=== PATIENT | female | born 1985 | race African-American/Black ===

== ENCOUNTER 2017-04-13 01:44 | Emergency (ER) | payer OTHER ==
[~2017-04-13] VITALS: Ht 170.2 cm; Wt 81.6 kg
[~2017-04-13 01:44] MED LIST: FAMO-63 PO; HYDR-2678 PO; Ibuprofen PO; LISI1TAB3 PO; OXYC-314 PO; PNV1TABL25 PO
[2017-04-13 01:49] VITALS: BP 175/112
[2017-04-13] MEDS ORDERED: ACETAMINOPHEN 325 MG TABLET. PO ONE (03:00)
--- NOTE | 2017-04-13 03:16 | RAD ---
EXAM: CT head without contrast HISTORY: FALL,HEAD INJURY WITH LOSS OF CONSCIOUSNESS COMPARISON: None. TECHNIQUE: Computed tomographic images of the head were obtained without contrast. PQRS compliance statement: One or more of the following individualized dose reduction techniques were utilized for this examination: 1. Automated exposure control 2. Adjustment of the mA and/or kV according to patient size 3. Use of iterative reconstruction technique FINDINGS: There is no acute intracranial process identified. Specifically, there are no intracranial blood products, extra-axial fluid collections, mass effect or midline shift. Ventricles and basilar cisterns are maintained. The visualized portions of the orbits, paranasal sinuses and mastoid air cells are unremarkable. No suspicious calvarial lesion is seen. IMPRESSION: No acute intracranial findings. Electronically signed by: Karol Latham MD (04/13/2017 3:14 AM)
--- NOTE | 2017-04-13 03:26 | PHYS DOC ---
Past Medical History Past Medical History: Asthma, Constipation, Other Additional Past Medical Histor: OVARIAN CYST,IV DRUG USE Past Surgical History: Other Additional Past Surgical Histo: NAVEL/ ABDOMINAL SURG Alcohol Use: None Drug Use: None Adult General Chief Complaint Chief Complaint: HEADACHE HPI HPI 32-year-old female presenting to the emergency department today after sustaining head injury. She reports sustaining a mechanical fall in a public bathroom when she had her the back of her head and lost consciousness. She has a headache that is mild to moderate intermittent and without alleviating factors. She comes by EMS today. She denies neck pain chest pain or shortness of breath. Review of systems is negative for abdominal pain or extremity pain. She denies nausea vomiting. All other review of systems is negative unless otherwise noted in history of present illness. ED course: 32-year-old female presenting to the emergency department with head injury and loss of consciousness. Head CT obtained which was negative. Otherwise secondary survey was unremarkable. The patient was then discharged home in stable condition. Review of Systems Review of Systems SEE ABOVE. Current Medications Current Medications Current Medications Medications (Trade) Dose Ordered Sig/Nivia Start Time Stop Time Status Last Admin Dose Admin Acetaminophen (Tylenol) 650 mg 1X ONCE 04/13/17 03:00 04/13/17 03:01 DC 04/13/17 03:10 650 MG Allergies Allergies Allergies Coded Allergies Type Severity Reaction Last Updated Verified amoxicillin Allergy Intermediate Pt states mother told her she was allergic 03/20/14 Yes Physical Exam Physical Exam Constitutional: Well developed, well nourished, no acute distress, non-toxic appearance. [] HENT: Normocephalic, unable to appreciate lacerations abrasions or ecchymosis of the head. No depressed skull fractures., bilateral external ears normal, oropharynx moist, no oral exudates, nose normal. [] Eyes: PERRLA, EOMI, conjunctiva normal, no discharge. [] Neck: Normal range of motion, no tenderness, supple, no stridor. [] Cardiovascular:Heart rate regular rhythm, no murmur [] Lungs & Thorax: Bilateral breath sounds clear to auscultation [] Abdomen: Bowel sounds normal, soft, no tenderness, no masses, no pulsatile masses. [] Skin: Warm, dry, no erythema, no rash. [] Back: No tenderness, no CVA tenderness. [] Extremities: No tenderness, no cyanosis, no clubbing, ROM intact, no edema. [] Neurologic: Mental status: Awake oriented and alert x3 Cranial nerves: Extraocular movements intact, eyebrows ricci bilaterally smile symmetric, uvula elevation, shoulder shrug intact, tongue protrusion normal DTRs: 2+ Sensation: equal and normal in all extremities Strength: 5/5 in upper and lower extremities bilaterally Psychologic: Affect normal, judgement normal, mood normal. [] Current Patient Data Vital Signs Vital Signs Date Time Temp Pulse Resp B/P (MAP) Pulse Ox O2 Delivery O2 Flow Rate FiO2 04/13/17 01:49 98.5 117 20 96 Room Air 98.5 EKG EKG [] Radiology/Procedures Radiology/Procedures [] Course & Med Decision Making Course & Med Decision Making Pertinent Labs and Imaging studies reviewed. (See chart for details) [] Dragon Disclaimer Dragon Disclaimer This electronic medical record was generated, in whole or in part, using a voice recognition dictation system. Departure Departure Impression: Primary Impression: Head injury Additional Impression: Loss of consciousness Disposition: HOME, SELF-CARE Condition: STABLE Referrals: ALISHA STAPLETON MD (PCP) Patient Instructions: Head Injury, Adult Additional Instructions: Thank you for allowing us to participate in your care today. Followup with your primary care physician in 3 days if your symptoms do not improve. Call your Primary Doctor tomorrow and inform them of your visit today. If you do not have a primary care provider you can ask for a list of our primary care providers. Return to the emergency department you have any new or concerning findings. This should be evaluated by the primary care physician and any necessary consulting services for continued management within a few days after discharge. Return to emergency room if you have any new or concerning symptoms including but not limited to fever, chills, nausea, vomiting, intractable pain, any new rashes, chest pain, shortness of air, uncontrolled bleeding, difficulty breathing, and/or vision loss. Problem Qualifiers VALARIE PEREZ MD Apr 13, 2017 03:26
[2017-04-13] MEDS: IBUPROFEN 400 MG TABLET. PO ONE (03:35)
== END 2017-04-13 04:35 | disposition home or self-care (01) ==
LOC: ER 01:44
DX: S06.9X9A Unspecified intracranial injury with loss of consciousness of unspecified duration, initial encounter (principal); J45.909 Unspecified asthma, uncomplicated; Z88.1 Allergy status to other antibiotic agents; W19.XXXA Unspecified fall, initial encounter; Y93.89 Activity, other specified; Y92.89 Other specified places as the place of occurrence of the external cause; Y99.8 Other external cause status
CPT/HCPCS: 70450; 81025; 99284-25

== ENCOUNTER 2017-11-17 05:11 | Inpatient (IN) | payer SELFPAY ==
[2017-11-17] MEDS ORDERED: ONDANSETRON PF 4 MG/2 ML VIAL. IV ×3 (05:45→12:00)
[2017-11-17] MEDS ORDERED: VANCOMYCIN PER PHARMACY MC (05:45)
[2017-11-17] MEDS: fentaNYL PF VIAL 100 MCG/2 ML VIAL IV ×4 (05:55→12:11)
[2017-11-17] MEDS: VANCOMYCIN 2 GM in IV DEXTROSE 5 %-0.2 % NACL 500 ML IV (06:19)
[2017-11-17] MEDS: ONDANSETRON PF 4 MG/2 ML VIAL. IV (06:21)
[2017-11-17] MEDS: IV NORMAL SALINE 1000ML BAG 1,000 ML IV (06:22)
[2017-11-17 06:23] LABS: ADD MAN DIFF? NO
[2017-11-17 06:40] LABS: ANION GAP 12 (6-14); BLOOD UREA NITROGEN 12 mg/dL (7-20); CALCIUM 9.2 mg/dL (8.5-10.1); CARBON DIOXIDE 24 mmol/L (21-32); CHLORIDE 102 mmol/L (98-107); CREATININE 0.8 mg/dL (0.6-1.0); GFR 101.2; GLUCOSE 116 mg/dL (70-99); POTASSIUM 3.7 mmol/L (3.5-5.1); SODIUM 138 mmol/L (136-145)
[2017-11-17 06:42] LABS: BASO # 0.1 x10^3/uL (0.0-0.2); BASO % 1 % (0-3); C-REACTIVE PROTEIN 165.6 mg/L (0-3.3); EOS # 0.2 x10^3/uL (0.0-0.7); EOS % 2 % (0-3); HEMATOCRIT 37.2 % (36.0-47.0); LYMPH # 1.4 x10^3/uL (1.0-4.8); LYMPH % 13 % (24-48); MEAN CORPUSCULAR HEMOGLOBIN 25 pg (25-35); MEAN CORPUSCULAR HGB CONC 32 g/dL (31-37); MEAN CORPUSCULAR VOLUME 78 fL (79-100); MONO # 1.1 x10^3/uL (0.0-1.1); MONO % 11 % (0-9); NEUT % 74 % (31-73); PLATELET COUNT 352 x10^3/uL (140-400); RED BLOOD COUNT 4.76 x10^6/uL (3.50-5.40); RED CELL DISTRIBUTION WIDTH 14.9 % (11.5-14.5); WHITE BLOOD COUNT 10.8 x10^3/uL (4.0-11.0)
[2017-11-17 06:50] LABS: LACTIC ACID 0.8 mmol/L (0.4-2.0)
[2017-11-17] MEDS: VANCOMYCIN PER PHARMACY MC ×2 (06:52→06:56)
[2017-11-17] MEDS ORDERED: ACETAMINOPHEN 325 MG TABLET. PO (08:00)
[2017-11-17] MEDS: IV RINGERS,LACTATED 1000ML 1,000 ML IV ×3 (08:15→17:11)
[2017-11-17] MEDS: HYDROmorphone 2 MG/ML VIAL IV ×4 (08:16→23:14)
[2017-11-17 08:50] LABS: SEDIMENTATION RATE 15 (0-25)
[2017-11-17 09:00] LABS: BILIRUBIN,URINE NEGATIVE (NEG); CLARITY,URINE CLEAR; COLOR,URINE YELLOW; GLUCOSE,URINE NEGATIVE (NEG); NITRITE,URINE NEGATIVE (NEG); PROTEIN,URINE NEGATIVE (NEG-TRACE)
[2017-11-17 09:20] LABS: BACTERIA,URINE 0 /HPF (0-FEW); RBC,URINE 0 /HPF (0-2); SQUAMOUS EPITHELIAL CELL,UR FEW /LPF; WBC,URINE 0 /HPF (0-4)
[2017-11-17] MEDS ORDERED: diphenhydrAMINE 50 MG/ML VIAL IVP (09:30)
[2017-11-17] MEDS: CEFEPIME HCL IV Push 1 GM VIAL. IVP ×2 (09:40→17:10)
[2017-11-17] MEDS ORDERED: PROPOFOL 20 ML IV (10:28)
[2017-11-17] MEDS ORDERED: LIDOCAINE 2% PF Vial for OR 5 ML VIAL. (10:28)
[2017-11-17] MEDS ORDERED: fentaNYL PF VIAL 100 MCG/2 ML VIAL ×2 (10:29→11:46)
[2017-11-17] MEDS ORDERED: DEXAMETHASONE SOD PHOS 20 MG/5 ML VIAL. (10:29)
[2017-11-17] MEDS ORDERED: ONDANSETRON PF 4 MG/2 ML VIAL. (10:29)
[2017-11-17] MEDS ORDERED: MIDAZOLAM HCL/PF 2 MG/2 ML VIAL. (10:29)
[2017-11-17] MEDS ORDERED: ESMOLOL 100 MG/10 ML VIAL. IV (11:25)
[2017-11-17] MEDS ORDERED: PROCHLORPERAZINE 10 MG/2 ML VIAL. (11:46)
[2017-11-17] MEDS: PROCHLORPERAZINE 10 MG/2 ML VIAL. IV ×2 (11:57→12:08)
[2017-11-17] MEDS ORDERED: HYDROmorphone 2 MG/ML VIAL IV (12:00)
[2017-11-17] MEDS ORDERED: fentaNYL PF VIAL 100 MCG/2 ML VIAL IV (12:00)
[2017-11-17] MEDS ORDERED: MORPHINE SULFATE 2 MG/ML DISP.SYRIN. IV (12:00)
[2017-11-17] MEDS ORDERED: LIDOCAINE 1% PF 2 ML VIAL. ID (12:00)
[2017-11-17] MEDS ORDERED: CEFEPIME HCL 1 GM in IV DEXTROSE 5% 50 ML IV (14:00)
[2017-11-17] MEDS: VANCOMYCIN 1.5 GM in IV DEXTROSE 5 %-0.2 % NACL 500 ML IV ×2 (14:24→22:23)
[2017-11-17] MEDS: oxyCODONE/APAP 5/325 1 TAB TABLET PO (22:21)
[2017-11-18] MEDS: CEFEPIME HCL IV Push 1 GM VIAL. IVP ×2 (00:27→08:19)
[2017-11-18] MEDS: oxyCODONE/APAP 5/325 1 TAB TABLET PO (05:57)
[2017-11-18 06:05] LABS: ADD MAN DIFF? NO
[2017-11-18 06:33] LABS: BASO % 0 % (0-3); EOS % 0 % (0-3); HEMATOCRIT 35.1 % (36.0-47.0); HEMOGLOBIN 11.4 g/dL (12.0-15.5); LYMPH # 1.2 x10^3/uL (1.0-4.8); LYMPH % 10 % (24-48); MEAN CORPUSCULAR HEMOGLOBIN 26 pg (25-35); MEAN CORPUSCULAR HGB CONC 33 g/dL (31-37); MEAN CORPUSCULAR VOLUME 78 fL (79-100); MONO # 0.9 x10^3/uL (0.0-1.1); MONO % 7 % (0-9); NEUT # 10.3 x10^3uL (1.8-7.7); NEUT % 83 % (31-73); PLATELET COUNT 388 x10^3/uL (140-400); RED BLOOD COUNT 4.48 x10^6/uL (3.50-5.40); RED CELL DISTRIBUTION WIDTH 14.6 % (11.5-14.5); WHITE BLOOD COUNT 12.5 x10^3/uL (4.0-11.0)
[2017-11-18 06:37] LABS: ANION GAP 10 (6-14); BLOOD UREA NITROGEN 9 mg/dL (7-20); CARBON DIOXIDE 25 mmol/L (21-32); CHLORIDE 105 mmol/L (98-107); CREATININE 0.6 mg/dL (0.6-1.0); GFR 141.1; GLUCOSE 121 mg/dL (70-99); POTASSIUM 3.8 mmol/L (3.5-5.1); SODIUM 140 mmol/L (136-145)
[2017-11-18] MEDS: VANCOMYCIN 1.5 GM in IV DEXTROSE 5 %-0.2 % NACL 500 ML IV (07:32)
[2017-11-18] MEDS: HYDROmorphone 2 MG/ML VIAL IV (07:32)
[2017-11-18] MEDS: IV RINGERS,LACTATED 1000ML 1,000 ML IV (08:19)
[2017-11-18] MEDS: VANCOMYCIN PER PHARMACY MC (13:25)
== END 2017-11-18 09:15 | disposition left against medical advice (07) | DRG 854 ==
LOC: ER 05:11 → 4 NORTH 05:50
PROC: 0JBQ0ZZ Excision of Right Foot Subcutaneous Tissue and Fascia, Open Approach (ICD-10-PCS; principal; 2017-11-17 11:02)
DX: A41.9 Sepsis, unspecified organism (principal); L02.611 Cutaneous abscess of right foot; L03.115 Cellulitis of right lower limb; F17.210 Nicotine dependence, cigarettes, uncomplicated; J45.909 Unspecified asthma, uncomplicated; W57.XXXA Bitten or stung by nonvenomous insect and other nonvenomous arthropods, initial encounter; Z82.49 Family history of ischemic heart disease and other diseases of the circulatory system; K59.00 Constipation, unspecified; Z53.21 Procedure and treatment not carried out due to patient leaving prior to being seen by health care provider
CPT/HCPCS: 36415; 73630; 80048; 80202; 81001; 83605; 85025; 85651; 86140; 87040; 87071; 87075; 87086; 87205; 96361; 96365; 96375; 99285; 99285-25; J0692; J0780; J1100; J1170; J2250; J2405; J2704; J3010; J3370; J3490; J7030; J7120

== ENCOUNTER 2018-04-18 23:47 | Emergency (ER) | payer SELFPAY ==
[2018-04-19 00:33] LABS: BILIRUBIN,URINE NEGATIVE (NEG); CLARITY,URINE CLEAR; COLOR,URINE YELLOW; GLUCOSE,URINE NEGATIVE (NEG); NITRITE,URINE NEGATIVE (NEG); PH,URINE 5.5; PROTEIN,URINE NEGATIVE (NEG-TRACE); UROBILINOGEN,URINE 0.2 mg/dL (0.2 mg/dL)
[2018-04-19 00:46] LABS: AMPHETAMINE/METHAMPHETAMINE NEG (NEG); BARBITURATES NEG (NEG); BENZODIAZEPINES NEG (NEG); CANNABINOIDS NEG (NEG); COCAINE POS (NEG); METHADONE NEG (NEG); OPIATES POS (NEG); PHENCYCLIDINE NEG (NEG)
[2018-04-19 00:47] LABS: ETHANOL, URINE NEG (NEG)
[2018-04-19 00:48] LABS: BACTERIA,URINE FEW /HPF (0-FEW); SQUAMOUS EPITHELIAL CELL,UR MOD /LPF
[2018-04-19 01:10] LABS: NEG OBC UR NEG; POS OBC UR POS; U PREG PATIENT NEGATIVE (NEG)
[2018-04-19] MEDS: ONDANSETRON PF 4 MG/2 ML VIAL. IV (01:26)
[2018-04-19] MEDS: PANTOPRAZOLE IV PUSH 40 MG VIAL. IVP (01:26)
[2018-04-19] MEDS: IV NORMAL SALINE 1000ML BAG 1,000 ML IV (01:29)
[2018-04-19 01:37] LABS: ADD MAN DIFF? NO
[2018-04-19 01:48] LABS: BASO % 1 % (0-3); EOS # 0.2 x10^3/uL (0.0-0.7); EOS % 3 % (0-3); HEMATOCRIT 31.5 % (36.0-47.0); HEMOGLOBIN 10.5 g/dL (12.0-15.5); LYMPH # 1.6 x10^3/uL (1.0-4.8); LYMPH % 28 % (24-48); MEAN CORPUSCULAR HEMOGLOBIN 24 pg (25-35); MEAN CORPUSCULAR HGB CONC 33 g/dL (31-37); MEAN CORPUSCULAR VOLUME 72 fL (79-100); MONO # 0.5 x10^3/uL (0.0-1.1); MONO % 8 % (0-9); NEUT # 3.5 x10^3uL (1.8-7.7); NEUT % 61 % (31-73); PLATELET COUNT 322 x10^3/uL (140-400); RED BLOOD COUNT 4.36 x10^6/uL (3.50-5.40); RED CELL DISTRIBUTION WIDTH 16.1 % (11.5-14.5); WHITE BLOOD COUNT 5.8 x10^3/uL (4.0-11.0)
[2018-04-19 01:50] LABS: ANION GAP 9 (6-14); BLOOD UREA NITROGEN 15 mg/dL (7-20); BUN/CREATININE RATIO 19 (6-20); CALCIUM 8.8 mg/dL (8.5-10.1); CARBON DIOXIDE 25 mmol/L (21-32); CHLORIDE 107 mmol/L (98-107); CREATININE 0.8 mg/dL (0.6-1.0); GFR 100.6; GLUCOSE 105 mg/dL (70-99); POTASSIUM 3.8 mmol/L (3.5-5.1); SODIUM 141 mmol/L (136-145)
[2018-04-19 01:52] LABS: ETHANOL < 10 mg/dL (0-10)
[2018-04-19 01:56] LABS: ALBUMIN 3.4 g/dL (3.4-5.0); ALBUMIN/GLOBULIN RATIO 0.9 (1.0-1.7); ALK PHOS 114 U/L (46-116); ALT (SGPT) 14 U/L (14-59); AST (SGOT) 20 U/L (15-37); LIPASE 89 U/L (73-393); TOTAL BILIRUBIN 0.3 mg/dL (0.2-1.0); TOTAL PROTEIN 7.3 g/dL (6.4-8.2)
[2018-04-19] MEDS: ACETAMINOPHEN 500 MG TABLET PO (02:26)
== END 2018-04-19 02:30 | disposition home or self-care (01) ==
LOC: ER 23:47
DX: R11.2 Nausea with vomiting, unspecified (principal); R19.7 Diarrhea, unspecified; J45.909 Unspecified asthma, uncomplicated; Z79.899 Other long term (current) drug therapy; Z88.1 Allergy status to other antibiotic agents
CPT/HCPCS: 36415; 80053; 80307; 81001; 81025; 83690; 85025; 87086; 96361; 96374; 96375; 99284-25; C9113; G0480; J2405; J7030

== ENCOUNTER 2020-04-06 20:03 | Observation (INO) | payer MEDICAID ==
[2018-04-19 01:54] VITALS: BP 156/72
[~2020-04-06] VITALS: Ht 170.2 cm; Wt 98.7 kg
[~2020-04-06 20:03] MED LIST changes: +FOLI1TAB35 PO; +IV RINGERS,LACTATED 1000ML 1,000 ML IV SCH; +LISI1TAB23 PO; -LISI1TAB3 PO; +[UNRECOGNIZED DRUG - OTHER]
[2020-04-06] MEDS ORDERED: ACETAMINOPHEN 325 MG TABLET. PO PRN (20:15)
[2020-04-06 20:37] LABS: BILIRUBIN,URINE NEGATIVE (NEG); CLARITY,URINE CLEAR; COLOR,URINE YELLOW; NITRITE,URINE NEGATIVE (NEG); PH,URINE 6.5 (<5.0-8.0); PROTEIN,URINE NEGATIVE (NEG-TRACE)
[2020-04-06 20:41] LABS: SQUAMOUS EPITHELIAL CELL,UR MOD /LPF
[2020-04-06 20:43] LABS: BACTERIA,URINE FEW /HPF (0-FEW); RBC,URINE RARE /HPF (0-2)
[2020-04-06 20:44] LABS: AMPHETAMINE/METHAMPHETAMINE NEG (NEG); BARBITURATES NEG (NEG); BENZODIAZEPINES NEG (NEG); CANNABINOIDS NEG (NEG); COCAINE NEG (NEG); METHADONE NEG (NEG); OPIATES NEG (NEG); PHENCYCLIDINE NEG (NEG)
[2020-04-06] MEDS ORDERED: hydrOXYzine IM 50 MG/ML VIAL IM PRN (21:00)
[2020-04-06] MEDS ORDERED: ACETAMINOPHEN 500 MG TABLET PO ONE (21:30)
== END 2020-04-06 22:10 | disposition home or self-care (01) ==
LOC: 3 SO LND 20:03 → EEVIPCON 20:03
PROVIDERS: ADMIT Obstetrics & Gynecology; ATTEND Obstetrics & Gynecology
DX: O26.893 Other specified pregnancy related conditions, third trimester (principal); R12 Heartburn; Z3A.37 37 weeks gestation of pregnancy
CPT/HCPCS: 80307; 81001; 87086; 96372; G0378; G0379; J3410; 59025

== ENCOUNTER 2020-04-18 16:36 | Inpatient (IN) | payer MEDICAID, OTHER ==
[~2020-04-18] VITALS: Ht 170.2 cm; Wt 98.4 kg
[~2020-04-18 16:36] MED LIST changes: -IV RINGERS,LACTATED 1000ML 1,000 ML IV SCH
[2020-04-18] MEDS ORDERED: ACETAMINOPHEN 325 MG TABLET. PO PRN (17:00)
[2020-04-18] MEDS ORDERED: MAG HYDROX/ALUMINUM HYD/SIMETH 30 ML ORAL.SUSP PO PRN (17:00)
[2020-04-18] MEDS ORDERED: IV RINGERS,LACTATED 1000ML 1,000 ML IV SCH ×2 (17:00→20:00)
[2020-04-18] MEDS ORDERED: ONDANSETRON PF 4 MG/2 ML VIAL. IVP PRN (17:00)
[2020-04-18 17:19] LABS: BILIRUBIN,URINE NEGATIVE (NEG); CLARITY,URINE CLEAR; COLOR,URINE YELLOW; NITRITE,URINE NEGATIVE (NEG); PH,URINE 8.5 (<5.0-8.0); PROTEIN,URINE 30 mg/dL (NEG-TRACE)
[2020-04-18 17:20] LABS: CREATININE,RANDOM URINE 267.4 mg/dL (Not Establ.)
[2020-04-18 17:25] LABS: BARBITURATES NEG (NEG); BENZODIAZEPINES NEG (NEG); CANNABINOIDS NEG (NEG); COCAINE NEG (NEG); METHADONE NEG (NEG); OPIATES NEG (NEG); PHENCYCLIDINE NEG (NEG)
[2020-04-18 17:26] LABS: BACTERIA,URINE MODERATE /HPF (0-FEW); RBC,URINE 0 /HPF (0-2); SQUAMOUS EPITHELIAL CELL,UR MANY /LPF
[2020-04-18 17:30] LABS: AMPHETAMINE/METHAMPHETAMINE NEG (NEG)
[2020-04-18] MEDS: LABETALOL 20 MG/4 ML DISP.SYRIN. IVP PRN ×2 (17:33→18:29)
[2020-04-18 17:34] LABS: BASO % 1 % (0-3); EOS # 0.1 x10^3/uL (0.0-0.7); EOS % 1 % (0-3); HEMATOCRIT 30.6 % (36.0-47.0); HEMOGLOBIN 10.2 g/dL (12.0-15.5); LYMPH # 1.3 x10^3/uL (1.0-4.8); LYMPH % 22 % (24-48); MEAN CORPUSCULAR HEMOGLOBIN 25 pg (25-35); MEAN CORPUSCULAR HGB CONC 33 g/dL (31-37); MEAN CORPUSCULAR VOLUME 74 fL (79-100); MONO # 0.5 x10^3/uL (0.0-1.1); MONO % 8 % (0-9); NEUT % 68 % (31-73); PLATELET COUNT 265 x10^3/uL (140-400); RED BLOOD COUNT 4.14 x10^6/uL (3.50-5.40); RED CELL DISTRIBUTION WIDTH 15.3 % (11.5-14.5); WHITE BLOOD COUNT 5.8 x10^3/uL (4.0-11.0)
[2020-04-18 17:49] LABS: CALCIUM 8.1 mg/dL (8.5-10.1); CREATININE 0.8 mg/dL (0.6-1.0); GFR 99.4; POTASSIUM 3.7 mmol/L (3.5-5.1)
[2020-04-18 17:55] LABS: ALBUMIN 2.7 g/dL (3.4-5.0); ALBUMIN/GLOBULIN RATIO 0.7 (1.0-1.7); TOTAL BILIRUBIN 0.3 mg/dL (0.2-1.0); TOTAL PROTEIN 6.4 g/dL (6.4-8.2); URIC ACID 4.6 mg/dL (2.6-6.0)
[2020-04-18] MEDS ORDERED: TERBUTALINE 1 MG/ML VIAL. SQ PRN (19:30)
[2020-04-18] MEDS ORDERED: 0.9 % SODIUM CHLORIDE 10 ML DISP.SYRIN. IV PRN (19:30)
[2020-04-18] MEDS ORDERED: LIDOCAINE 1% PF 30 ML VIAL. INJ PRN (19:30)
[2020-04-18] MEDS ORDERED: IBUPROFEN 400 MG TABLET. PO PRN (19:30)
[2020-04-18] MEDS ORDERED: DINOPROSTONE 10 MG SUPP.VAG VG ONE (19:30)
[2020-04-18] MEDS ORDERED: fentaNYL PF VIAL 100 MCG/2 ML VIAL IVP PRN ×3 (19:30)
[2020-04-18] MEDS ORDERED: BUTORPHANOL 2 MG/ML VIAL. IVP PRN ×2 (19:30)
[2020-04-18] MEDS ORDERED: OXYTOCIN 30 UNIT/500 ML PREMIX 500 ML IV PRN ×2 (19:30)
[2020-04-18] MEDS ORDERED: CLINDAMYCIN 900MG PREMIX 50 ML IV SCH (20:00)
[2020-04-18 20:08] VITALS: BP 148/95
[2020-04-18] MEDS: ZOLPIDEM 5 MG TABLET. PO PRN (22:02)
--- NOTE | 2020-04-19 10:09 | PDOC ---
GENERAL General: 35 yrs old lady EDC 04/23/20 having High BP with Headaches Visual Disturbance Admitted with some Contractions . VITAL SIGNS Vital Signs/I&O: Vital Signs Date Time Temp Pulse Resp B/P (MAP) Pulse Ox O2 Delivery O2 Flow Rate FiO2 04/18/20 20:08 97.7 68 18 148/95 (112) 98 97.7 ALLERGIES Allergies: Allergies Coded Allergies Type Severity Reaction Last Updated Verified amoxicillin Allergy Intermediate Pt states mother told her she was allergic 11/17/17 Yes MEDS Medications: Current Medications Medications (Trade) Dose Ordered Sig/Nivia Route PRN Reason Start Time Stop Time Status Last Admin Dose Admin Ringer's Solution 1,000 ml @ 125 mls/hr Q8H IV 04/18/20 17:00 04/18/20 17:34 Acetaminophen (Tylenol) 650 mg PRN Q6HRS PRN PO PAIN, TEMP > 100.5'F 04/18/20 17:00 04/18/20 19:38 Labetalol HCl (Normodyne Iv Push) 10 mg PRN Q10MIN PRN IVP HYPERTENSION 04/18/20 17:15 04/18/20 18:29 Ringer's Solution 1,000 ml @ 125 mls/hr Q8H IV 04/18/20 20:00 04/19/20 10:02 Clindamycin Phosphate 50 ml @ 100 mls/hr Q8H IV 04/18/20 20:00 04/19/20 10:00 Dinoprostone (Cervidil) 10 mg 1X ONCE VG 04/18/20 19:30 04/18/20 19:38 DC 04/18/20 21:01 Zolpidem Tartrate (Ambien) 10 mg PRN QHS PRN PO INSOMNIA 04/18/20 20:45 04/18/20 22:02 LAB Lab: Laboratory Tests Test 04/18/20 17:00 04/18/20 17:22 Urine Collection Type Unknown Urine Color Yellow Urine Clarity Clear Urine pH 8.5 (<5.0-8.0) Urine Specific [place] 1.025 (1.000-1.030) Urine Protein 30 mg/dL (NEG-TRACE) Urine Glucose (UA) Negative mg/dL (NEG) Urine Ketones (Stick) Negative mg/dL (NEG) Urine Blood Negative (NEG) Urine Nitrite Negative (NEG) Urine Bilirubin Negative (NEG) Urine Urobilinogen Dipstick 1.0 mg/dL (0.2 mg/dL) Urine Leukocyte Esterase Small (NEG) Urine RBC 0 /HPF (0-2) Urine WBC 5-10 /HPF (0-4) Urine Squamous Epithelial Cells Many /LPF Urine Bacteria Moderate /HPF (0-FEW) Urine Mucus Marked /LPF Urine Random Creatinine 267.4 mg/dL (Not Establ.) Urine Random Total Protein 20.8 mg/dL (Not Establ.) Urine Protein/Creatinine Ratio 78 mg/g (0-200) Urine Opiates Screen Neg (NEG) Urine Methadone Screen Neg (NEG) Urine Barbiturates Neg (NEG) Urine Phencyclidine Screen Neg (NEG) Urine Amphetamine/Methamphetamine Neg (NEG) Urine Benzodiazepines Screen Neg (NEG) Urine Cocaine Screen Neg (NEG) Urine Cannabinoids Screen Neg (NEG) Urine Ethyl Alcohol Neg (NEG) White Blood Count 5.8 x10^3/uL (4.0-11.0) Red Blood Count 4.14 x10^6/uL (3.50-5.40) Hemoglobin 10.2 g/dL (12.0-15.5) L Hematocrit 30.6 % (36.0-47.0) L Mean Corpuscular Volume 74 fL (79-100) L Mean Corpuscular Hemoglobin 25 pg (25-35) Mean Corpuscular Hemoglobin Concent 33 g/dL (31-37) Red Cell Distribution Width 15.3 % (11.5-14.5) H Platelet Count 265 x10^3/uL (140-400) Neutrophils (%) (Auto) 68 % (31-73) Lymphocytes (%) (Auto) 22 % (24-48) L Monocytes (%) (Auto) 8 % (0-9) Eosinophils (%) (Auto) 1 % (0-3) Basophils (%) (Auto) 1 % (0-3) Neutrophils # (Auto) 4.0 x10^3/uL (1.8-7.7) Lymphocytes # (Auto) 1.3 x10^3/uL (1.0-4.8) Monocytes # (Auto) 0.5 x10^3/uL (0.0-1.1) Eosinophils # (Auto) 0.1 x10^3/uL (0.0-0.7) Basophils # (Auto) 0.0 x10^3/uL (0.0-0.2) Sodium Level 137 mmol/L (136-145) Potassium Level 3.7 mmol/L (3.5-5.1) Chloride Level 103 mmol/L (98-107) Carbon Dioxide Level 22 mmol/L (21-32) Anion Gap 12 (6-14) Blood Urea Nitrogen 7 mg/dL (7-20) Creatinine 0.8 mg/dL (0.6-1.0) Estimated GFR (Cockcroft-Gault) 99.4 BUN/Creatinine Ratio 9 (6-20) Glucose Level 86 mg/dL (70-99) Uric Acid 4.6 mg/dL (2.6-6.0) Calcium Level 8.1 mg/dL (8.5-10.1) L Total Bilirubin 0.3 mg/dL (0.2-1.0) Aspartate Amino Transferase (AST) 14 U/L (15-37) L Alanine Aminotransferase (ALT) 12 U/L (14-59) L Alkaline Phosphatase 201 U/L (46-116) H Total Protein 6.4 g/dL (6.4-8.2) Albumin 2.7 g/dL (3.4-5.0) L Albumin/Globulin Ratio 0.7 (1.0-1.7) L Treponema pallidum Antibody Nonreactive (Nonreactive) Hepatitis B Surface Antigen Nonreactive (Nonreactive) Hepatitis B Core IgM Antibody Nonreactive (Nonreactive) HIV (1&2) Antibody Screen Nonreactive (Nonreactive) Laboratory Tests 04/18/20 17:22 Laboratory Tests 04/18/20 17:22 ASSESSMENT & PLAN A&P Patient has PreEclampsia Will treat her BP and then Induce Labor With Cervidil and Pitocin. Justicifation of Admission Dx: Justifications for Admission: Justification of Admission Dx: Yes PRASHANTH MOSQUEDA MD Apr 19, 2020 10:09
[2020-04-19] MEDS: LABETALOL 20 MG/4 ML DISP.SYRIN. IVP PRN ×2 (11:45→15:48)
[2020-04-19] MEDS ORDERED: L&D EPIDURAL SYRINGE 50 ML ONE (12:00)
[2020-04-19] MEDS ORDERED: ROPIVacaine 0.2% PF 10 ML VIAL. ONE (12:00)
[2020-04-19] MEDS ORDERED: IV RINGERS,LACTATED 1000ML 1,000 ML IV SCH (12:26)
[2020-04-19] MEDS ORDERED: NALOXONE 0.4 MG/ML VIAL. IV PRN (12:30)
[2020-04-19] MEDS ORDERED: ePHEDrine PF IN SALINE 50 MG/10 ML SYRINGE. IV PRN (12:30)
[2020-04-19] MEDS ORDERED: ROPIVacaine 0.2% PF 10 ML VIAL. EPID PRN (12:30)
[2020-04-19] MEDS ORDERED: DOCUSATE SODIUM 100 MG CAPSULE. PO PRN (14:00)
[2020-04-19] MEDS ORDERED: SIMETHICONE 80 MG TAB.CHEW PO PRN (14:00)
[2020-04-19] MEDS ORDERED: MMR per PROTOCOL. MC PRN (14:00)
[2020-04-19] MEDS ORDERED: diphenhydrAMINE HCL 25 MG CAPSULE PO PRN (14:00)
[2020-04-19] MEDS ORDERED: TDaP (Adacel) per PROTOCOL. MC PRN (14:00)
[2020-04-19] MEDS ORDERED: PHENYLEPH/MINERAL OIL/PETROLAT RECTAL OINTMENT TUBE. RC PRN (14:00)
--- NOTE | 2020-04-19 14:15 | OP ---
DATE OF SURGERY: 04/19/2020 This patient is a 35-year-old -[place] female who is 5, para 4, EDC 04/23/2020, was seen in the [facility] [place] [place] [facility] couple of times for care and comes in to the hospital with a history of having contractions and very high blood pressure 200/110 diastolic and having visual symptoms, epigastric pain and headache. The patient was admitted to the hospital and Cervidil was given. Also, IV fluids, IV labetalol given for blood pressure, and subsequently, she was induced with IV oxytocin and she did make a good progress of labor and artificial rupture of membranes was done when she was about 7 cm. She did receive epidural block during labor. She progressed to complete dilatation, had a spontaneous vaginal delivery. A live male weighing 7 pounds 5 ounces was delivered at 1543 hours on 04/19/2020 with the scores of 8, 9 and 9 without any problem. There was cord around the neck at the time of the delivery noted and cord was clamped and cut. Cord blood was taken. Placenta removed spontaneous. No hemorrhage noted. She did receive Pitocin after delivery of the placenta. Visualization of perineum reveals no tears. Estimated blood loss, about 100 mL. Mother tolerated the delivery well. No complications at this time and mother is leaving the baby for adoption. PRASHANTH MOSQUEDA MD DR: DARIO/mary beth JOB#: [id number] / [id number]
--- NOTE | 2020-04-19 14:21 | HP ---
ADMIT DATE: CHIEF COMPLAINT AND HISTORY OF PRESENT ILLNESS: This patient is a 35-year-old -Nepalese female who is a 5, para 4, came into the Labor and Delivery with a history of having contractions and also having headaches and epigastric discomfort, difficulty in vision with high blood pressure, hence the patient admitted to the hospital because of preeclampsia. Her EDC is 04/23/2020 and she has had a care 1 or 2 visits at [facility] and presents in with contractions at this time. PHYSICAL EXAMINATION: VITAL SIGNS: Reveals she vital signs at the time of admission to the hospital, blood pressure of 200/110 and at times 180/110 and immediately labetalol IV drip was started. ABDOMEN: Abdomen looks term size uterus. heart tones are 146 per minute, vertex presenting, and membranes intact. PELVIC: Shows cervix 1 cm, very posterior and the patient having some contractions at this time. EXTREMITIES: No edema of feet. IMPRESSION: 5, para 4 term with preeclampsia. PLAN: Admission, IV fluids and further treatment, vaginal delivery. PRASHANTH MOSQUEDA MD DR: DARIO/mary beth JOB#: [id number] / [id number]
[2020-04-19 16:45] VITALS: BP 143/82
[2020-04-19] MEDS ORDERED: FERROUS SULFATE 325 MG TABLET. PO SCH (17:00)
[2020-04-19 17:45] VITALS: BP 146/85
[2020-04-19] MEDS ORDERED: IBUPROFEN 400 MG TABLET. PO PRN (19:45)
[2020-04-19] MEDS: LABETALOL HCL 200 MG TABLET PO SCH (20:38)
[2020-04-19 20:48] VITALS: BP 150/89
[2020-04-19] MEDS: ZOLPIDEM 5 MG TABLET. PO PRN (22:07)
[2020-04-20 00:30] VITALS: BP 142/75
[2020-04-20 04:00] VITALS: BP 148/85
[2020-04-20] MEDS: LABETALOL HCL 200 MG TABLET PO SCH (08:29)
--- NOTE | 2020-04-20 09:04 | PDOC ---
GENERAL General: Patient doing fine. No Problems. VITAL SIGNS Vital Signs/I&O: Vital Signs Date Time Temp Pulse Resp B/P (MAP) Pulse Ox O2 Delivery O2 Flow Rate FiO2 04/20/20 08:29 73 148/85 04/20/20 04:00 98.1 16 Room Air 98.1 04/19/20 17:45 96 I & O 04/19/20 04/19/20 04/20/20 15:00 23:00 07:00 Intake Total 50 ml 1500 ml Balance 50 ml 1500 ml ALLERGIES Allergies: Allergies Coded Allergies Type Severity Reaction Last Updated Verified amoxicillin Allergy Intermediate Pt states mother told her she was allergic 11/17/17 Yes MEDS Medications: Current Medications Medications (Trade) Dose Ordered Sig/Nivia Route PRN Reason Start Time Stop Time Status Last Admin Dose Admin Docusate Sodium (Colace) 100 mg PRN BID PRN PO HARD STOOL 04/19/20 14:00 04/20/20 08:27 Simethicone (Gas-X) 80 mg PRN AFTMEALHC PRN PO GAS / BLOATING 04/19/20 14:00 04/20/20 08:27 Ferrous Sulfate (Feosol) 325 mg BIDWMEALS PO 04/19/20 17:00 04/20/20 08:27 Labetalol HCl (Trandate) 200 mg [id number] PO 04/19/20 21:00 04/20/20 08:29 Ibuprofen (Motrin) 800 mg PRN Q6HRS PRN PO INFLAMMATION 04/19/20 19:45 04/20/20 08:28 LAB Lab: Laboratory Tests Test 04/20/20 07:35 Hematocrit 27.6 % (36.0-47.0) L Laboratory Tests 04/20/20 07:35 ASSESSMENT & PLAN A&P Patient likes to go home. No Fever. Vital Signs stable. Justicifation of Admission Dx: Justifications for Admission: Justification of Admission Dx: Yes PRASHANTH MOSQUEDA MD Apr 20, 2020 09:04
[2020-04-20 09:17] VITALS: BP 146/84
[2020-04-20] MEDS ORDERED: DIPH,PERTUSS(ACELL),TET VAC/PF 0.5 ML SYRINGE. VAX IM ONE (09:30)
[2020-04-20] MEDS ORDERED: MEASLES, MUMPS & RUBELLA VACC 0.5 ML VIAL. VAX SQ ONE (09:30)
[2020-04-20 09:54] VITALS: BP 146/84
== END 2020-04-20 10:30 | disposition home or self-care (01) | DRG 807 ==
LOC: 3 SO LND 16:36 → EEVIPCON 16:36 → OBSVTOIN 16:36 → EEVIPCON 16:36 → 3 NORTH 04-19 16:45
PROVIDERS: ADMIT Obstetrics & Gynecology; ATTEND Obstetrics & Gynecology
PROC: 10E0XZZ Delivery of Products of Conception, External Approach (ICD-10-PCS; principal; 2020-04-19)
PROC: 3E0P7VZ Introduction of Hormone into Female Reproductive, Via Natural or Artificial Opening (ICD-10-PCS; 2020-04-19)
PROC: 3E033VJ Introduction of Other Hormone into Peripheral Vein, Percutaneous Approach (ICD-10-PCS; 2020-04-19)
PROC: 10907ZC Drainage of Amniotic Fluid, Therapeutic from Products of Conception, Via Natural or Artificial Opening (ICD-10-PCS; 2020-04-19)
PROC: 3E0R3BZ Introduction of Anesthetic Agent into Spinal Canal, Percutaneous Approach (ICD-10-PCS; 2020-04-19)
PROC: 00HU33Z Insertion of Infusion Device into Spinal Canal, Percutaneous Approach (ICD-10-PCS; 2020-04-19)
PROC: 3E0234Z Introduction of Serum, Toxoid and Vaccine into Muscle, Percutaneous Approach (ICD-10-PCS; 2020-04-19)
DX: O14.94 Unspecified pre-eclampsia, complicating childbirth (principal); Z37.0 Single live birth; Z20.828 Contact with and (suspected) exposure to other viral communicable diseases; Z3A.39 39 weeks gestation of pregnancy; O26.893 Other specified pregnancy related conditions, third trimester; Z67.41 Type O blood, Rh negative
CPT/HCPCS: 36415; 80053; 80307; 81001; 82570; 84156; 84550; 85014; 85025; 85461; 86592; 86695; 86696; 86703; 86705; 86850; 86900; 86901; 87086; 87340; 87653; 90471; 90707; 90715; J2590; J2791; J3490; J7120; G0378; U0003-CS

== ENCOUNTER 2020-04-22 22:25 | Emergency (ER) | payer MEDICAID ==
[~2020-04-22] VITALS: Ht 170.2 cm; Wt 98.4 kg
[2020-04-22 23:39] LABS: BILIRUBIN,URINE NEGATIVE (NEG); CLARITY,URINE CLEAR; COLOR,URINE YELLOW; NITRITE,URINE NEGATIVE (NEG); PROTEIN,URINE NEGATIVE (NEG-TRACE)
[2020-04-22 23:46] LABS: SQUAMOUS EPITHELIAL CELL,UR FEW /LPF
[2020-04-22 23:47] LABS: BACTERIA,URINE FEW /HPF (0-FEW)
[2020-04-22 23:50] LABS: CALCIUM 8.3 mg/dL (8.5-10.1); GFR 76.8; POTASSIUM 3.3 mmol/L (3.5-5.1)
--- NOTE | 2020-04-22 23:54 | PHYS DOC ---
Past Medical History Past Medical History: Asthma, Constipation, Other Additional Past Medical Histor: OVARIAN CYST,IV DRUG USE-prior Past Surgical History: Other Additional Past Surgical Histo: lapraoscopy and cyst removal Smoking Status: Current Every Day Smoker Alcohol Use: Rarely Drug Use: None General Adult EDM: Chief Complaint: DIZZY/LIGHT HEADED HPI: HPI: Patient is a 35 year old female presents to the ED with a chief complaint of lightheadedness. Patient states that she has had symptoms since 2:00 this afte rnoon. Patient states that she had a vaginal delivery April 19. The delivery was induced due to patient's hypertension. At the time patient was having headaches, dizziness and high blood pressure. Patient was started on labetalol and today took an extra dose. Patient complains of headache and dizziness. Review of Systems: Review of Systems: Constitutional: Denies fever or chills. [] Eyes: Denies change in visual acuity. [] HENT: Denies nasal congestion or sore throat. [] Respiratory: Denies cough or shortness of breath. [] Cardiovascular: Denies chest pain or edema. [] GI: Denies abdominal pain, nausea, vomiting, bloody stools or diarrhea. [] : Denies dysuria. [] Neurologic: Complains of headache and dizziness Heart Score: Risk Factors: Risk Factors: DM, Current or recent (<one month) smoker, HTN, HLP, family history of CAD, obesity. Risk Scores: Score 0 - 3: 2.5% MACE over next 6 weeks - Discharge Home Score 4 - 6: 20.3% MACE over next 6 weeks - Admit for Clinical Observation Score 7 - 10: 72.7% MACE over next 6 weeks - Early Invasive Strategies Allergies: Allergies: Allergies Coded Allergies Type Severity Reaction Last Updated Verified amoxicillin Allergy Intermediate Pt states mother told her she was allergic 11/17/17 Yes Physical Exam: PE: Constitutional: Well developed, well nourished, no acute distress, non-toxic appearance. [] HENT: Normocephalic, atraumatic Eyes: EOMI Neck: Normal range of motion, Supple Cardiovascular:Heart rate regular rhythm Lungs & Thorax: Bilateral breath sounds clear to auscultation [] Abdomen: Bowel sounds normal, soft, no tenderness Extremities: No tenderness, ROM intact Neurologic: Alert and oriented X 3, no focal neuro deficits on exam Current Patient Data: Vital Signs: Vital Signs Date Time Temp Pulse Resp B/P (MAP) Pulse Ox O2 Delivery O2 Flow Rate FiO2 04/22/20 23:23 98.2 60 19 99 98.2 04/22/20 22:34 191/93 (125) Room Air EKG: EKG: [EKG interpretation: 23: 01 on 04/22/2020 HR: 61 Sinus rhythm Regular intervals Normal axis Nonspecific ST changes ] Radiology/Procedures: Radiology/Procedures: [] Impression: CT BRAIN Impression: No acute intracranial process. Course & Med Decision Making: Course & Med Decision Making Pertinent Labs and Imaging studies reviewed. (See chart for details) Labs are within normal limits except potassium which is 3.3. Ordered replacement of potassium in the ER. EKG does not show any acute changes. CT head does not show any acute intracranial process. Patient states that her symptoms are resolved and she is feeling much better. Patient blood pressure still 180/89. Patient is given Catapres 0.2 mg tablet. On recheck patient's blood pressure is still 180/87 Patient states that she does not want to be admitted to the hospital but wants to be discharged home for outpatient follow-up. I have discussed the need to rule out cavernous venous thrombosis. Offered patient admission to have an MRI done tomorrow. Patient states that she does not want to be admitted to the hospital is to go home as she has a at home. States that she will follow-up with her PCP tomorrow and will return to the ED if any concerns. Discussed results and plan of care with patient. Patient is instructed to follow up with PCP in one to 2 days. Appropriate discharge instructions given to patient to return to the ED or to seek immediate medical evaluation. Patient is instructed to return to the ED if symptoms worsen or if any concerns. Dragon Disclaimer: Dragon Disclaimer: This electronic medical record was generated, in whole or in part, using a voice recognition dictation system. Departure Departure Impression: Primary Impression: Dizziness Additional Impression: HTN (hypertension) Disposition: HOME, SELF-CARE Condition: STABLE Referrals: NO PCP (PCP) Patient Instructions: Arterial Hypertension, Dizziness Additional Instructions: Discussed results and plan of care with patient. Patient is instructed to follow up with PCP in one to 2 days. Appropriate discharge instructions given to patient to return to the ED or to seek immediate medical evaluation. Patient is instructed to return to the ED if symptoms worsen or if any concerns. Justicifation of Admission Dx: Justifications for Admission: Justification of Admission Dx: TODD Hogan DO Apr 22, 2020 23:54
[2020-04-22 23:56] LABS: ALBUMIN 2.7 g/dL (3.4-5.0); ALBUMIN/GLOBULIN RATIO 0.6 (1.0-1.7); TOTAL BILIRUBIN 0.2 mg/dL (0.2-1.0); TOTAL PROTEIN 7.1 g/dL (6.4-8.2)
--- NOTE | 2020-04-22 23:59 | RAD ---
CT HEAD WO CONTRAST Date: 04/22/2020 10:54 PM Clinical Indication: Reason: dizziness / Spl. Instructions: / History: Comparison: None. Technique: 5 mm axial tomographic images were obtained of the head without contrast. These were viewed on brain and bone windows. One or more of the following dose reduction techniques were utilized: Automated exposure control (AEC), Adjustment of mA and/or kV according to patient size, Use of iterative reconstruction technique such as ASiR, CT scan done according to ALARA and image gently/image wisely Findings: The brain parenchyma is normal in attenuation. No intra- or extra-axial mass or fluid collection. No acute hemorrhage. The ventricles are normal in size, shape, and morphology. The george-white matter junction is normal. The subarachnoid cisterns are patent. The visualized paranasal sinuses are normal. The visualized portions of the orbits and globes are normal. The mastoid air cells are clear. The hasher machine operator topogram shows no lytic lesion or fracture. Impression: No acute intracranial process. Electronically signed by: Tutu Aguilera MD (04/22/2020 11:56 PM) [facility]
[2020-04-23 00:02] LABS: BASO % 0 % (0-3); EOS # 0.2 x10^3/uL (0.0-0.7); EOS % 3 % (0-3); HEMATOCRIT 29.7 % (36.0-47.0); HEMOGLOBIN 9.9 g/dL (12.0-15.5); LYMPH # 1.4 x10^3/uL (1.0-4.8); LYMPH % 25 % (24-48); MEAN CORPUSCULAR HEMOGLOBIN 25 pg (25-35); MEAN CORPUSCULAR HGB CONC 33 g/dL (31-37); MEAN CORPUSCULAR VOLUME 74 fL (79-100); MONO # 0.4 x10^3/uL (0.0-1.1); MONO % 6 % (0-9); NEUT # 3.7 x10^3/uL (1.8-7.7); NEUT % 65 % (31-73); PLATELET COUNT 263 x10^3/uL (140-400); RED BLOOD COUNT 4.03 x10^6/uL (3.50-5.40); RED CELL DISTRIBUTION WIDTH 15.4 % (11.5-14.5); WHITE BLOOD COUNT 5.6 x10^3/uL (4.0-11.0)
[2020-04-23] MEDS ORDERED: cloNIDine HCL 0.1 MG TABLET PO ONE (01:00)
[2020-04-23 01:30] VITALS: BP 154/77
[2020-04-23] MEDS ORDERED: POTASSIUM CHLORIDE 20 MEQ TABLET.ER. PO ONE (02:00)
--- NOTE | 2020-04-23 08:49 | EKG ---
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
== END 2020-04-23 01:40 | disposition home or self-care (01) ==
LOC: ER 22:25
DX: O16.5 Unspecified maternal hypertension, complicating the puerperium (principal); R42 Dizziness and giddiness; R51 Headache; O99.53 Diseases of the respiratory system complicating the puerperium; J45.909 Unspecified asthma, uncomplicated; O99.335 Smoking (tobacco) complicating the puerperium; Z88.1 Allergy status to other antibiotic agents
CPT/HCPCS: 36415; 70450; 80053; 81001; 83605; 83880; 84484; 85025; 87086; 93005; 99285-25

== ENCOUNTER 2020-10-19 17:37 | Emergency (ER) | payer MEDICAID ==
[~2020-10-19] VITALS: Ht 172.7 cm; Wt 99.7 kg
[2020-10-19 19:02] LABS: BILIRUBIN,URINE NEGATIVE (NEG); CLARITY,URINE CLEAR; COLOR,URINE YELLOW; NITRITE,URINE NEGATIVE (NEG); PROTEIN,URINE NEGATIVE (NEG-TRACE)
[2020-10-19 19:15] LABS: AMORPHOUS SEDIMENT,UR PRESENT /HPF; BACTERIA,URINE 0 /HPF (0-FEW); RBC,URINE 0 /HPF (0-2)
[2020-10-19 20:37] VITALS: BP 142/65
[2020-10-19] MEDS ORDERED: AZITHROMYCIN 250 MG TABLET. PO ONE (22:00)
[2020-10-19] MEDS ORDERED: cefTRIAXone IM 250 MG VIAL IM ONE (22:00)
[2020-10-19] MEDS ORDERED: METR-34 PO (22:17)
--- NOTE | 2020-10-19 22:18 | ED.ADGEN ---
Past Medical History Past Medical History: Asthma, Constipation, Other Additional Past Medical Histor: OVARIAN CYST,IV DRUG USE-prior Past Surgical History: Other Additional Past Surgical Histo: lapraoscopy and cyst removal Smoking Status: Current Every Day Smoker Alcohol Use: Rarely Drug Use: None General Adult EDM: Chief Complaint: VAGINAL PROBLEM HPI: HPI: Patient is a 35 year old AA female who presents emergency department with complaints of irregular vaginal discharge and vaginal odor that began today. Patient reports that a gush of foul-smelling fluid came out of her vagina today. She reports concerns of a sexually transmitted infection. Patient denies any dysuria, hematuria, increased urinary frequency, back pain, abdominal pain, nausea, vomiting, diarrhea, abdominal pain, or rash. She currently denies any pain. Review of Systems: Review of Systems: Complete ROS is negative unless otherwise noted in HPI. Current Medications: Current Medications Medications (Trade) Dose Ordered Sig/Nivia Start Time Stop Time Status Last Admin Dose Admin Azithromycin (Zithromax) 1,000 mg 1X ONCE 10/19/20 22:00 10/19/20 22:01 DC Ceftriaxone Sodium (Rocephin Im) 250 mg 1X ONCE 10/19/20 22:00 10/19/20 22:01 DC Allergies: Allergies: Allergies Coded Allergies Type Severity Reaction Last Updated Verified amoxicillin Allergy Intermediate Pt states mother told her she was allergic 11/17/17 Yes Physical Exam: PE: See Above Constitutional: Well developed, well nourished, no acute distress, non-toxic appearance. HENT: Normocephalic, atraumatic, bilateral external ears normal, nose normal. Eyes: PERRLA, EOMI, conjunctiva normal, no discharge. Neck: Normal range of motion, no stridor. Cardiovascular: Heart rate regular rhythm Lungs & Thorax: Respirations even and unlabored, no retractions, no respiratory distress Pelvic Exam: Watch Dial Stoner present Alisha GALLEGOS Abdomen: Nontender, soft External Genitalia: Normal Skin Speculum: Normal vaginal mucosa, strawberry appearing cervix, yellow vaginal discharge present Bimanual: No adnexal masses or tenderness, No CMT Skin: Warm, dry, no erythema, no rash. Extremities: No cyanosis, ROM intact, no edema. Neurologic: Alert and oriented X 3, no focal deficits noted. Psychologic: Affect normal, judgement normal, mood normal. Current Patient Data: Labs: Laboratory Tests Test 10/19/20 17:40 10/19/20 18:31 Urine Collection Type Unknown Urine Color Yellow Urine Clarity Clear Urine pH 6.0 (<5.0-8.0) Urine Specific [place] >=1.030 (1.000-1.030) Urine Protein Negative mg/dL (NEG-TRACE) Urine Glucose (UA) Negative mg/dL (NEG) Urine Ketones (Stick) Negative mg/dL (NEG) Urine Blood Negative (NEG) Urine Nitrite Negative (NEG) Urine Bilirubin Negative (NEG) Urine Urobilinogen Dipstick 1.0 mg/dL (0.2 mg/dL) Urine Leukocyte Esterase Negative (NEG) Urine RBC 0 /HPF (0-2) Urine WBC 1-4 /HPF (0-4) Urine Squamous Epithelial Cells Mod /LPF Urine Amorphous Sediment Present /HPF Urine Bacteria 0 /HPF (0-FEW) Urine Mucus Marked /LPF POC Urine HCG, Qualitative Hcg negative (Negative) Microbiology 10/19/20 Wet Prep - Final, Complete Vital Signs: Vital Signs Date Time Temp Pulse Resp B/P (MAP) Pulse Ox O2 Delivery O2 Flow Rate FiO2 10/19/20 20:37 97.9 63 14 142/65 (90) 98 97.9 EKG: EKG: [] Heart Score: Risk Factors: Risk Factors: DM, Current or recent (<one month) smoker, HTN, HLP, family history of CAD, obesity. Risk Scores: Score 0 - 3: 2.5% MACE over next 6 weeks - Discharge Home Score 4 - 6: 20.3% MACE over next 6 weeks - Admit for Clinical Observation Score 7 - 10: 72.7% MACE over next 6 weeks - Early Invasive Strategies Radiology/Procedures: Radiology/Procedures: [] Course & Med Decision Making: Course & Med Decision Making Pertinent Labs and Imaging studies reviewed. (See chart for details) Patient was treated prophylactically with 250 mg of IM Rocephin, and 1 g of PO Zithromax. Patient was instructed to avoid having intercourse until the results of gonorrhea and chlamydia testing are available, patient was notified that these results would not be available for 48 hours. If one or both of these tests is positive, patient needs to refrain from intercourse for approximately 1 week following the treatment of any current partners. Wet mount was concerning for bacterial vaginosis, prescription was written for Flagyl 500 mg p.o. twice daily x7 days. Patient verbalized an understanding of home care, medications, follow-up, and return to ED instructions and was in agreement with the plan of care. [] Annabella Disclaimer: Annabella Disclaimer: This electronic medical record was generated, in whole or in part, using a voice recognition dictation system. Departure Departure Impression: Primary Impression: Bacterial vaginosis Additional Impression: Contact with and (suspected) exposure to infections with a predominantly sexual mode of transmission Disposition: 01 DC HOME SELF CARE/HOMELESS Condition: STABLE Referrals: NO PCP (PCP) Patient Instructions: Bacterial Vaginosis, [id number], Sexually Transmitted Disease, [id number] Additional Instructions: Fill the prescription and use as directed. Recommend that you go to your local health department for comprehensive sexually transmitted disease testing. You have been treated for a suspected gonorrhea and chlamydia. Avoid having intercourse until the results of gonorrhea and chlamydia testing are available, these results will not be available for 48 hours. If one or both of these tests is positive, you need to refrain from intercourse for approximately 1 week following the treatment of any current partners. Follow-up with your primary care doctor if symptoms persist, return to ER symptoms worsen. Scripts Metronidazole (METRONIDAZOLE) 500 Mg Tablet 1 TAB PO BID for 7 Days, #14 TAB 0 Refills Prov: ROHAN CARRERA APRN 10/19/20 Problem Qualifiers ROHAN CARRERA APRN Oct 19, 2020 22:18
[2020-10-21 19:09] LABS: GC PROBE Negative (Negative)
== END 2020-10-19 22:23 | disposition home or self-care (01) ==
LOC: ER 17:37
DX: N76.0 Acute vaginitis (principal); B96.89 Other specified bacterial agents as the cause of diseases classified elsewhere; Z20.2 Contact with and (suspected) exposure to infections with a predominantly sexual mode of transmission; J45.909 Unspecified asthma, uncomplicated; F17.200 Nicotine dependence, unspecified, uncomplicated; Z88.1 Allergy status to other antibiotic agents
CPT/HCPCS: 81001; 81025; 87491; 87591; 96372; 99284; J0696; Q0111

== ENCOUNTER 2021-01-09 14:11 | Emergency (ER) | payer MEDICAID ==
[~2021-01-09] VITALS: Ht 170.2 cm; Wt 100.0 kg
[~2021-01-09 14:11] MED LIST changes: +METR-34 PO
[2021-01-09 15:10] LABS: BILIRUBIN,URINE NEGATIVE (NEG); CLARITY,URINE CLEAR; COLOR,URINE YELLOW; NITRITE,URINE NEGATIVE (NEG); PROTEIN,URINE NEGATIVE (NEG-TRACE)
[2021-01-09 15:19] LABS: BACTERIA,URINE FEW /HPF (0-FEW); RBC,URINE >40 /HPF (0-2)
[2021-01-09 16:11] LABS: BASO # 0.1 x10^3/uL (0.0-0.2); BASO % 1 % (0-3); EOS # 0.1 x10^3/uL (0.0-0.7); EOS % 2 % (0-3); HEMATOCRIT 33.8 % (36.0-47.0); HEMOGLOBIN 11.2 g/dL (12.0-15.5); LYMPH # 1.2 x10^3/uL (1.0-4.8); LYMPH % 25 % (24-48); MEAN CORPUSCULAR HEMOGLOBIN 26 pg (25-35); MEAN CORPUSCULAR HGB CONC 33 g/dL (31-37); MEAN CORPUSCULAR VOLUME 78 fL (79-100); MONO # 0.4 x10^3/uL (0.0-1.1); MONO % 8 % (0-9); NEUT % 64 % (31-73); PLATELET COUNT 375 x10^3/uL (140-400); RED BLOOD COUNT 4.31 x10^6/uL (3.50-5.40); RED CELL DISTRIBUTION WIDTH 15.6 % (11.5-14.5); WHITE BLOOD COUNT 4.8 x10^3/uL (4.0-11.0)
--- NOTE | 2021-01-09 16:47 | RAD ---
Exam: Ultrasound pelvis complete Indication: Pelvic pain Technique: Real-time grayscale and color Doppler images of the pelvis were obtained by the department novelty twister tender. Comparisons: None FINDINGS: Uterus measures 9.8 x 6.5 x 6.5 cm. There is a heterogenous mass in the uterine fundus measuring up t o 5.1 cm. Endometrium is not well visualized. Right ovary measures 4.6 x 3.3 x 2.4 cm. Left ovary measures 3.5 x 1.7 x 1.8 cm. Vascular flow identified within the ovaries bilaterally. IMPRESSION: 1. Fibroid uterus. Endometrium is not well visualized. Consider MRI of the pelvis to better evaluate the endometrium, if clinically indicated. 2. Normal sonographic appearance of the ovaries. Electronically signed by: Marylou Carvalho MD (01/09/2021 4:44 PM) HETAL
[2021-01-09 16:49] LABS: CALCIUM 8.4 mg/dL (8.5-10.1); CREATININE 0.8 mg/dL (0.6-1.0); GFR 99.4; POTASSIUM 4.2 mmol/L (3.5-5.1)
[2021-01-09 16:55] LABS: ALBUMIN 3.4 g/dL (3.4-5.0); ALBUMIN/GLOBULIN RATIO 0.9 (1.0-1.7); TOTAL BILIRUBIN 0.2 mg/dL (0.2-1.0); TOTAL PROTEIN 7.1 g/dL (6.4-8.2)
[2021-01-09] MEDS ORDERED: IOHEXOL 300 MG/ML 100ML VIAL. ONE (18:25)
[2021-01-09] MEDS ORDERED: IOHEXOL 300 MG/ML 100ML VIAL. IV ONE (18:30)
--- NOTE | 2021-01-09 18:43 | RAD ---
INDICATION: Reason: heavy vag bleeding recent , Beta hcg in 200s / Spl. Instructions: [id number] 75ML [phone] / History: . COMPARISON: None. TECHNIQUE: Axial CT images obtained through the pelvis with contrast.. One or more of the following individualized dose reduction techniques were utilized for this examinat ion: 1. Automated exposure control; 2. Adjustment of the mA and/or kV according to patient size; 3 . Use of iterative reconstruction technique. FINDINGS: Fat-containing umbilical hernia. Appendix measures up to 7 mm which is mildly prominent but there is no adjacent inflammatory changes to suggest appendicitis therefore likely the patient's baseline appearance. Degenerative changes the partially seen spine. Urinary bladder is partially distended. Rim-enhancing lesion at the right ovary measuring approximately 23 mm. Uterus is prominent in size. Heterogeneity of myometrium. IMPRESSION: * Uterus has an enlarged appearance with masses within which is commonly secondary to fibroids. * The endometrial stripe is poorly visualized and cannot assess for retained products on this CT. Electronically signed by: Cy Canales MD (01/09/2021 6:41 PM) [id number]
[2021-01-09] MEDS ORDERED: CONTRAST GIVEN. MC PRN (18:45)
[2021-01-09] MEDS ORDERED: metroNIDAZOLE 500 MG TABLET PO ONE (19:30)
[2021-01-09] MEDS ORDERED: cefTRIAXone IV Push 1 GM VIAL. IVP ONE (19:30)
[2021-01-09] MEDS ORDERED: DOXYCYCLINE HYCLATE 100 MG TABLET PO ONE (19:30)
--- NOTE | 2021-01-09 19:30 | PHYS DOC ---
Past Medical History Past Medical History: Asthma, Constipation, Other Additional Past Medical Histor: OVARIAN CYST,IV DRUG USE-prior Past Surgical History: Other Additional Past Surgical Histo: lapraoscopy and cyst removal Smoking Status: Current Every Day Smoker Alcohol Use: Rarely Drug Use: None General Adult EDM: Chief Complaint: VAGINAL BLEEDING HPI: HPI: Patient is a 35 year old female with history of asthma presenting today complaining of vaginal bleeding that began 2 hours ago. Patient states she was at the beginning of the month. She states she is roughly 6 weeks when she decided to have a medical . She went to the women's clinic in [place] where she was given methotrexate 2 doses. She states she took the medicine and had some bleeding. She states the bleeding stopped. She states 2 hours ago the bleeding restarted. She states she feels the bleeding is heavy with clots. She states she is currently on control as well. She states she desires not to be . Review of Systems: Review of Systems: Constitutional: Denies fever or chills. [] Eyes: Denies change in visual acuity. [] HENT: Denies nasal congestion or sore throat. [] Respiratory: Denies cough or shortness of breath. [] Cardiovascular: Denies chest pain or edema. [] GI: Reports abdominal cramping, vaginal bleeding, denies nausea, vomiting, bloody stools or diarrhea. [] : Denies dysuria. [] Musculoskeletal: Denies back pain or joint pain. [] Integument: Denies rash. [] Neurologic: Denies headache, focal weakness or sensory changes. [] Psychiatric: Denies depression or anxiety. [] Heart Score: C/O Chest Pain: No Risk Factors: Risk Factors: DM, Current or recent (<one month) smoker, HTN, HLP, family history of CAD, obesity. Risk Scores: Score 0 - 3: 2.5% MACE over next 6 weeks - Discharge Home Score 4 - 6: 20.3% MACE over next 6 weeks - Admit for Clinical Observation Score 7 - 10: 72.7% MACE over next 6 weeks - Early Invasive Strategies Current Medications: Current Medications Medications (Trade) Dose Ordered Sig/Nivia Start Time Stop Time Status Last Admin Dose Admin Ceftriaxone Sodium (Rocephin) 1 gm 1X ONCE 01/09/21 19:30 01/09/21 19:31 Doxycycline Hyclate (Vibra-Tab) 100 mg 1X ONCE 01/09/21 19:30 01/09/21 19:31 Info (CONTRAST GIVEN -- Rx MONITORING) 1 each PRN DAILY PRN 01/09/21 18:45 01/11/21 18:44 Iohexol (Omnipaque 300 Mg/ml) 75 ml 1X ONCE 01/09/21 18:30 01/09/21 18:31 DC 01/09/21 18:30 75 ML Metronidazole (Flagyl) 2,000 mg 1X ONCE 01/09/21 19:30 01/09/21 19:31 Allergies: Allergies: Allergies Coded Allergies Type Severity Reaction Last Updated Verified amoxicillin Allergy Intermediate Pt states mother told her she was allergic 11/17/17 Yes Physical Exam: PE: Constitutional: Well developed, well nourished, no acute distress, non-toxic appearance. [] HENT: Normocephalic, atraumatic, bilateral external ears normal, oropharynx moist, no oral exudates, nose normal. [] Eyes: PERRLA, EOMI, conjunctiva normal, no discharge. [] Neck: Normal range of motion, no tenderness, supple, no stridor. [] Cardiovascular:Heart rate regular rhythm, no murmur [] Lungs & Thorax: Bilateral breath sounds clear to auscultation [] Abdomen: Bowel sounds normal, soft, no tenderness, no masses, no pulsatile masses. [] Pelvic exam External pelvic is normal, cervix is not well visualized due to body habitus, small amount of bright red blood noted in the vaginal vault, no CMT, no adnexal tenderness Skin: Warm, dry, no erythema, no rash. [] Back: No tenderness, no CVA tenderness. [] Extremities: No tenderness, no cyanosis, no clubbing, ROM intact, no edema. [] Neurologic: Alert and oriented X 3, normal motor function, normal sensory function, no focal deficits noted. [] Psychologic: Affect normal, judgement normal, mood normal. [] Current Patient Data: Labs: Laboratory Tests Test 01/09/21 14:15 01/09/21 14:19 01/09/21 15:50 Urine Collection Type Unknown Urine Color Yellow Urine Clarity Clear Urine pH 8.0 (<5.0-8.0) Urine Specific [place] 1.025 (1.000-1.030) Urine Protein Negative mg/dL (NEG-TRACE) Urine Glucose (UA) Negative mg/dL (NEG) Urine Ketones (Stick) Negative mg/dL (NEG) Urine Blood Large (NEG) Urine Nitrite Negative (NEG) Urine Bilirubin Negative (NEG) Urine Urobilinogen Dipstick 1.0 mg/dL (0.2 mg/dL) Urine Leukocyte Esterase Trace (NEG) Urine RBC >40 /HPF (0-2) Urine WBC 1-4 /HPF (0-4) Urine Squamous Epithelial Cells Few /LPF Urine Bacteria Few /HPF (0-FEW) Urine Mucus Mod /LPF POC Urine HCG, Qualitative Hcg positive (Negative) White Blood Count 4.8 x10^3/uL (4.0-11.0) Red Blood Count 4.31 x10^6/uL (3.50-5.40) Hemoglobin 11.2 g/dL (12.0-15.5) L Hematocrit 33.8 % (36.0-47.0) L Mean Corpuscular Volume 78 fL (79-100) L Mean Corpuscular Hemoglobin 26 pg (25-35) Mean Corpuscular Hemoglobin Concent 33 g/dL (31-37) Red Cell Distribution Width 15.6 % (11.5-14.5) H Platelet Count 375 x10^3/uL (140-400) Neutrophils (%) (Auto) 64 % (31-73) Lymphocytes (%) (Auto) 25 % (24-48) Monocytes (%) (Auto) 8 % (0-9) Eosinophils (%) (Auto) 2 % (0-3) Basophils (%) (Auto) 1 % (0-3) Neutrophils # (Auto) 3.0 x10^3/uL (1.8-7.7) Lymphocytes # (Auto) 1.2 x10^3/uL (1.0-4.8) Monocytes # (Auto) 0.4 x10^3/uL (0.0-1.1) Eosinophils # (Auto) 0.1 x10^3/uL (0.0-0.7) Basophils # (Auto) 0.1 x10^3/uL (0.0-0.2) Maternal Serum HCG Beta Subunit 294 mIU/mL (0-5) H Sodium Level 140 mmol/L (136-145) Potassium Level 4.2 mmol/L (3.5-5.1) Chloride Level 104 mmol/L (98-107) Carbon Dioxide Level 23 mmol/L (21-32) Anion Gap 13 (6-14) Blood Urea Nitrogen 10 mg/dL (7-20) Creatinine 0.8 mg/dL (0.6-1.0) Estimated GFR (Cockcroft-Gault) 99.4 BUN/Creatinine Ratio 13 (6-20) Glucose Level 98 mg/dL (70-99) Calcium Level 8.4 mg/dL (8.5-10.1) L Total Bilirubin 0.2 mg/dL (0.2-1.0) Aspartate Amino Transferase (AST) 16 U/L (15-37) Alanine Aminotransferase (ALT) 8 U/L (14-59) L Alkaline Phosphatase 103 U/L (46-116) Total Protein 7.1 g/dL (6.4-8.2) Albumin 3.4 g/dL (3.4-5.0) Albumin/Globulin Ratio 0.9 (1.0-1.7) L Laboratory Tests 01/09/21 15:50 Laboratory Tests 01/09/21 15:50 Vital Signs: Vital Signs Date Time Temp Pulse Resp B/P (MAP) Pulse Ox O2 Delivery O2 Flow Rate FiO2 01/09/21 18:03 74 16 113/60 (77) 99 Room Air 01/09/21 14:46 98.2 98.2 EKG: EKG: [] Radiology/Procedures: Radiology/Procedures: []PROCEDURE: PELVIS COMPLETE Exam: Ultrasound pelvis complete Indication: Pelvic pain Technique: Real-time grayscale and color Doppler images of the pelvis were obtained by the department clinical services professional. Comparisons: None FINDINGS: Uterus measures 9.8 x 6.5 x 6.5 cm. There is a heterogenous mass in the uterine fundus measuring up to 5.1 cm. Endometrium is not well visualized. Right ovary measures 4.6 x 3.3 x 2.4 cm. Left ovary measures 3.5 x 1.7 x 1.8 cm. Vascular flow identified within the ovaries bilaterally. IMPRESSION: 1. Fibroid uterus. Endometrium is not well visualized. Consider MRI of the pelvis to better evaluate the endometrium, if clinically indicated. 2. Normal sonographic appearance of the ovaries. Electronically signed by: Marylou Correia MD (01/09/2021 4:44 PM) [facility] DICTATED and SIGNED BY: MARYLOU CORREIA MD DATE: 01/09/21 [id number] PROCEDURE: CT PELVIS W/CONTRAST INDICATION: Reason: heavy vag bleeding recent , Beta hcg in 200s / Spl. Instructions: [id number] 75ML [phone] / History: . COMPARISON: None. TECHNIQUE: Axial CT images obtained through the pelvis with contrast.. One or more of the following individualized dose reduction techniques were utilized for this examination: 1. Automated exposure control; 2. Adjustment of the mA and/or kV according to patient size; 3. Use of iterative reconstruction technique. FINDINGS: Fat-containing umbilical hernia. Appendix measures up to 7 mm which is mildly prominent but there is no adjacent inflammatory changes to suggest appendicitis therefore likely the patient's baseline appearance. Degenerative changes the partially seen spine. Urinary bladder is partially distended. Rim-enhancing lesion at the right ovary measuring approximately 23 mm. Uterus is prominent in size. Heterogeneity of myometrium. IMPRESSION: * Uterus has an enlarged appearance with masses within which is commonly secondary to fibroids. * The endometrial stripe is poorly visualized and cannot assess for retained products on this CT. Electronically signed by: Sam Devine MD (01/09/2021 6:41 PM) [id number] DICTATED and SIGNED BY: SAM DEVINE MD DATE: 01/09/21 [id number] Course & Med Decision Making: Course & Med Decision Making Pertinent Labs and Imaging studies reviewed. (See chart for details) This is a 35-year-old female patient presented to the ED today with vaginal bleeding that began today. Patient had medical with methotrexate done on December 20 at 6 weeks . Today she started having vaginal bleeding. Positive urine hCG, beta-hCG 294. Hemoglobin 11.2 with hematocrit of 33.8. CMP with no acute findings. Vitals are stable. Blood group O-, patient was given RhoGam Pelvic ultrasound noted for fibroid uterus. Endometrium is not well visualized. Consider MRI of the pelvis to better evaluate the endometrium, if clinically indicated. CT of the abdomen and pelvic was also obtained which was also noted for fibroids. They could not visualize the endometrium while hence could not rule out products of conception. I spoke to Dr. [facility] about her results. She stated patient can follow up with his clinic or her OBGYN for repeat Beta HCG. Information was discussed with patient. She will follow-up with her own [employer] per her statement She requested STD treatment which was done Dragon Disclaimer: Dragon Disclaimer: This electronic medical record was generated, in whole or in part, using a voice recognition dictation system. Departure Departure Impression: Primary Impression: Dysfunctional uterine bleeding Additional Impressions: Encounter for prophylactic administration of RhoGAM Concern about STD in female without diagnosis Disposition: 01 DC HOME SELF CARE/HOMELESS Condition: STABLE Referrals: NO PCP (PCP) AALIYAH LIMA MD You can follow-up with your [employer] at the women's clinic or the provided [employer] as soon as possible Patient Instructions: Uterine Bleeding, Dysfunctional, [id number] Additional Instructions: You were evaluated in the emergency room. Your beta-hCG is 294, urine test is also positive. Your ultrasound was noted for fibroids. Your CAT scan they could not rule out retained products of conception. Please follow up at the women's clinic tomorrow or you can follow up with the provided OBGYN. Scripts Doxycycline Hyclate (DOXYCYCLINE HYCLATE) 100 Mg Tablet 1 TAB PO BID, #14 TAB Prov: KAYDEN MCCOY APRN 01/09/21 KAYDEN MCCOY APRN Jan 09, 2021 19:30
[2021-01-09 19:49] VITALS: BP 148/91
[2021-01-09] MEDS ORDERED: DOXY100T PO (19:50)
== END 2021-01-09 20:00 | disposition home or self-care (01) ==
LOC: ER 14:11
DX: O46.8X1 Other antepartum hemorrhage, first trimester (principal); O99.511 Diseases of the respiratory system complicating pregnancy, first trimester; J45.909 Unspecified asthma, uncomplicated; O99.331 Smoking (tobacco) complicating pregnancy, first trimester; Z3A.01 Less than 8 weeks gestation of pregnancy; Z88.1 Allergy status to other antibiotic agents
CPT/HCPCS: 36415; 36430; 72193; 76856; 80053; 81001; 81025; 84702; 85025; 86850; 86900; 86901; 87086; 96374; 99285; J0696; J2790; Q9967